=== PATIENT | female | born 1995 | race Hispanic/Latino ===

== ENCOUNTER 2017-01-05 09:51 | Inpatient (IN) | payer OTHER ==
[~2017-01-05] VITALS: Ht 162.6 cm; Wt 76.7 kg
[2017-01-05 10:21] LABS: MEAN CORPUSCULAR HGB CONC 34.6 g/dl (32.0-36.5); MEAN CORPUSCULAR VOLUME 92.7 fl (80.0-96.0); RED CELL DISTRIBUTION WIDTH 12.1 % (11.5-14.5); WHITE BLOOD COUNT 7.1 K/mm3 (4.0-10.0)
[2017-01-05 10:35] LABS: CONTROL LINE HCG INT CTR LINE PRESENT
[2017-01-05 10:38] LABS: METHADONE URINE NEGATIVE (NEGATIVE)
[2017-01-05 10:49] LABS: ALBUMIN 3.8 GM/DL (3.2-5.2); ALBUMIN/GLOBULIN RATIO 1.23 (1.00-1.93); ALKALINE PHOSPHATASE 79 U/L (45-117); ALT/SGPT 17 U/L (12-78); ANION GAP 9 MEQ/L (8-16); AST/SGOT 11 U/L (15-37); BILIRUBIN,DIRECT 0.1 MG/DL (0.0-0.2); BILIRUBIN,TOTAL 0.4 MG/DL (0.2-1.0); BLOOD UREA NITROGEN 8 MG/DL (7-18); CALCIUM LEVEL 8.5 MG/DL (8.5-10.1); CARBON DIOXIDE LEVEL 29 MEQ/L (21-32); CHLORIDE LEVEL 103 MEQ/L (98-107); CREATININE FOR GFR 0.69 MG/DL (0.55-1.02); GLOMERULAR FILTRATION RATE > 60.0 (>60); GLUCOSE, FASTING 105 MG/DL (70-105); POTASSIUM SERUM 3.8 MEQ/L (3.5-5.1); SODIUM LEVEL 141 MEQ/L (136-145); TOTAL PROTEIN 6.9 GM/DL (6.4-8.2)
[2017-01-05] MEDS ORDERED: ACETAMINOPHEN TAB 650MG DOSE (2X325MG) PO PRN ×2 (12:15→13:00)
[2017-01-05] MEDS ORDERED: traZODone 50 MG TAB PO PRN ×2 (12:15→13:00)
[2017-01-05] MEDS ORDERED: MAALOX 30 ML SUSP *UDC PO PRN ×2 (12:15→13:00)
[2017-01-05] MEDS ORDERED: MOM 30ML SUSPENSION UDC PO PRN ×2 (12:15→13:00)
[2017-01-05 13:08] VITALS: BP 131/86
[2017-01-05] MEDS: OLANZapine 5 MG TAB PO SCH ×2 (13:57→21:37)
[2017-01-05] MEDS: SERTRALINE HCL 50 MG TAB PO SCH (13:57)
[2017-01-05 18:00] VITALS: BP 131/76
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
[2017-01-06 06:35] VITALS: BP 124/84
[2017-01-06] MEDS: SERTRALINE HCL 50 MG TAB PO SCH (08:41)
[2017-01-06] MEDS: OLANZapine 5 MG TAB PO SCH (08:41)
[2017-01-06 18:14] VITALS: BP 120/67
[2017-01-06] MEDS: QUEtiapine FUMARATE 50 MG TAB PO SCH (22:40)
[2017-01-07 06:04] VITALS: BP 123/59
[2017-01-07] MEDS: SERTRALINE HCL 50 MG TAB PO SCH (08:06)
[2017-01-07] MEDS: QUEtiapine FUMARATE 50 MG TAB PO SCH ×2 (08:06→21:12)
[2017-01-07 18:21] VITALS: BP 114/76
[2017-01-08 06:43] VITALS: BP 134/74
[2017-01-08] MEDS: QUEtiapine FUMARATE 50 MG TAB PO SCH ×2 (08:06→21:50)
[2017-01-08] MEDS: SERTRALINE HCL 50 MG TAB PO SCH (08:07)
--- NOTE | 2017-01-08 13:01 | HPE ---
DATE OF ADMISSION: 01/05/2017 HISTORY OF PRESENT ILLNESS: Please refer to psychiatric history and evaluation for further details on this admission. This examination and history is intended for medical issues, which may need treatment, followup or consult on this 21-year-old female. ALLERGIES: No known allergies. PRIMARY CARE PROVIDER: [facility]. SOCIAL HISTORY: She is . 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 Ethyl alcohol (EtOH) weekends. Smokes none. Recreational drug use none. PAST MEDICAL HISTORY: Negative. PAST SURGICAL HISTORY: Negative. HOME MEDICATIONS: None. FAMILY HISTORY: Noncontributory. LABORATORY DATA: CBC was normal. CMP was normal. Toxicology screen was negative. REVIEW OF SYSTEMS: 10-systems review was done and was unremarkable. OBJECTIVE: VITAL SIGNS: Height 64 inches, weight 77.6 kg, body mass index (BMI) 29.4, blood pressure 123/60, pulse 70, respirations 16, temperature 97.9. GENERAL: The patient is alert and oriented times three. HEENT: Pupils equal and react to light. Extraocular movement intact. Sclerae clear. Conjunctivae normal. No facial asymmetry. Pharynx, tongue, gums pink and moist. Tongue is midline. NECK: Supple without lymphadenopathy. No thyromegaly. No goiter. Carotids 2+ without bruits. CHEST: Clear to auscultation without wheeze or retraction. HEART: Regular. ABDOMEN: Benign. Bowel sounds are positive. GENITOURINARY/RECTAL: Not done. EXTREMITIES: Equal strength, full range of motion. No cyanosis, clubbing or edema. Peripheral pulses equal and palpable bilaterally. SKIN: Warm and dry. Has old healed superficial lacerations in her left forearm. IMPRESSION AND PLAN: Psychiatric plan per psychiatry. No acute medical issues.
[2017-01-08 18:00] VITALS: BP 117/68
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
--- NOTE | 2017-01-08 21:24 | MHIPN ---
DATE: 01/07/2017 21-year-old female with history of: 1. Bipolar disorder. 2. Borderline personality disorder. SUBJECTIVE: The patient reports she "feels great, I slept a lot". The patient denies suicidal ideation. Says she has not been able to speak to her , although she knows that his back home, she says she knows he has called, but maybe nobody has been able to answer him on the phone at the inpatient mental health unit. She reports that she was warned, but she watched TV last night and denies urges to cut herself. She says that she has a plan whenever she feels upset or lonely to call for help, take her medications regularly and go to counseling in every week. OBJECTIVE: The patient is alert and oriented times three, cooperative with interview, in brighter mood and affect. The patient is not psychotic. She is not homicidal or suicidal. Her judgment and insight have improved, her impulse control has been good. ASSESSMENT: The patient is in a brighter mood. She seems to be less upset, however, it is interesting that she wanted her to come back home and now that he is back home, she seems not interested in him or in him coming to visit her. MANAGEMENT PLAN: Will continue on the same medications and will encourage her to attend groups. Will followup.
[2017-01-09 06:00] VITALS: BP 157/82
[2017-01-09] MEDS: hydrOXYzine 50 MG TAB PO PRN ×2 (06:25→14:36)
[2017-01-09] MEDS: QUEtiapine FUMARATE 50 MG TAB PO SCH ×2 (08:04→22:17)
[2017-01-09] MEDS: SERTRALINE HCL 50 MG TAB PO SCH (08:04)
--- NOTE | 2017-01-09 16:51 | ECGEPIP ---
Stationary ECG Study [facility] Test Date: 2017-01-09 Pat Name: TIFFANY HOLM Department: Room: [place] [address] Gender: F Industrial Rehabilitation Consultant: JIMMIE : 1995 Requested By: Karen Roman Order Number: [id number] Reading MD: Heath Lopez Measurements Intervals Romeo Rate: 85 P: 49 IN: 135 QRS: 43 QRSD: 89 T: 26 QT: 373 QTc: 445 Interpretive Statements SINUS RHYTHM Normal Electronically Signed On 01-09-2017 16:51:06 EDT by Heath Lopez
[2017-01-09 18:00] VITALS: BP 135/72
--- NOTE | 2017-01-09 18:12 | MHIPNPDOC ---
[facility] Progress Note Progress Note DATE OF SERVICE: 01/09/17 HISTORY: Patient is a 21-year-old female, who presented to ED after calling [facility] on [place] and reported experiencing suicidal ideation with plan to "get drunk and smash car into a tree." Patient reported +ETOH daily, notable history of suicide attempts, many unreported. 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 Patient reported marital issues, she is not working and noted at intake that being home alone is a stressor and trigger for depression for her. Patient notes she also has a history of cutting, notes she last cut 1 day prior to admission, usually cuts to thighs. At time of admission patient indicated she stopped taking her psychotropic medications in September wanting to try to cope without medications, noted at time of admission that she was wanting to restart psychotropic meds. Waterworks Chief Engineer met with patient today to assess treatment progress on the inpatient unit. Patient reported improvement to symptoms of anxiety and depression, denied suicidal and homicidal ideation noting she last experienced prior to admission, denied homicidal ideation, denied auditory or visual hallucinations, and denied urge to engage in self-injurious behavior. Patient reiterates today that in the past she has experienced "hearing people whispering," but notes she believes these were not auditory hallucinations. Patient today denies ever being diagnosed with "multiple personalities," confirms she does have a history of being diagnosed with anxiety, depression, and bipolar disorder. Patient indicates current medications are working well, she denies medication side effects, and states now she feels she is prepared for discharge, he comes noticeably irritable when informed the discharge would not be occurring today. Patient continues to describe sleep as "good," denies challenges with concentration and focus, indicates appetite is stable, and reports improvement in energy level. Patient speaks openly today about desire to discharge to home with , indicates has been will be staying home with her "for a while," and does not feel will be returning to [place] [facility]. Patient denies experiencing marital strain noting, "there were a few talks about but things are fine now." Patient indicates her family resides in [facility] and notes she has daily contact with her father, feels he is a strong and positive support. Patient denies symptoms of physical pain and presents with no signs of acute distress at time of interaction. Patient states she has a history of being treated with Risperdal and Celexa, and Seroquel. Patient indicates all of the aforementioned medications were effective in the past, add Seroquel had lowest side effects for addressing bipolar symptoms. VITALS: See below NEW TEST RESULTS: No new results MEDICAL/SURGICAL HISTORY: Patient denies chronic medical conditions, further denies history of seizure or head injury. 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, makes good eye contact, appears mildly disheveled, is dressed in hospital clothing, ambulates with steady gait, appears stated age but is somewhat immature in interactional style Speech: Of normal rate, rhythm, volume, spontaneous, coherent Thought processes: Linear, logical, rational Thought content: Logical, rational, no tangentiality or paranoia noted, perseverative to discharge Abstract reasoning and computation: Fair Description of associations: Intact Description of abnormal or psychotic thoughts: Patient denies suicidal and homicidal ideation, denies auditory and visual hallucinations, does not appear to be responding to internal stimuli, does not endorse bizarre paranoid ideations, and denies preoccupation with violence or obsessions Judgment: Poor. Insight: Poor. Orientation: A and O x 3. Recent and remote memory: Fair. Attention span and concentration: Limited, easily distracted Fund of knowledge: Appears adequate Mood: "I'm fine now that I'm back on my medications and my 's home so I feel I should be discharged today." No mood lability noted except when informed she would not be discharged today, appears impulsive Affect: Constricted, brightens at times, congruent with mood DIAGNOSES: Bipolar disorder, rule out borderline personality disorder, rule out substance-induced mood disorder, rule out alcohol use disorder ASSESSMENT: Patient appears to be adjusting to unit, has been visible, engaging with staff and peers, is participating in unit activities, is cooperative with staff, and has presented with no behavior management challenges. Patient informs promotion writer today that now that she is back on her medication she feels prepared for discharge, is superficially compliant and continues to minimize behavior and events which led to current hospitalization, notes that now that her has returned from [place] she feels she should be discharged. Patient reportedly abruptly discontinued her medications in September, states current medication regimen is working well and denies medication side effects. Importance of medication and treatment compliance was reviewed with patient who verbalized understanding. Patient indicates current medication is working well, denies medication side effects, has not been using trazodone for sleep but is aware medication is available to her if needed. Patient has been utilizing PRN hydroxyzine to address intermittent symptoms of anxiety with good effect reported. Patient denies current suicidal or homicidal ideation and verbalizes awareness of how to access supportive services on the unit if needed. Will continue to monitor patient's response to medications and for medication side effects, and will evaluate patient's safety, resolution of suicidal ideation, and discharge readiness. Patient states when prepared for discharge she wants to discharge to home with , states that her returns to [place] or is deployed she will go stay with a friend, who is also reportedly the of her husbands first sergeant. Patient reiterates today that she struggles with feelings of isolation and abandonment, also continues to appear impulsive and irritable. Patient has history of multiple suicide attempts in addition to self-injurious behavior with last episode occurring prior to hospitalization. clearance coordinator is attempting to access background treatment information and will be communicating with family to ensure that a safe discharge plan is put in place. Patient indicates she wants to follow-up with outpatient behavioral health services for psychotherapy and medication management. clearance coordinator will need to ensure that [place] is currently providing behavioral health services to active duty dependents. If [place] is not currently providing behavioral health services to active duty dependence, then patient will need to be referred to outpatient psychotherapy and medication management through community resources. MANAGEMENT PLAN: Continue Seroquel 150 mg po BID, Zoloft 50 mg po q am, trazodone 50 mg po hs PRN insomnia, hydroxyzine 50 mg po q 6 hours PRN anxiety/ agitation Maintain safety precautions Patient to attend groups and participate in unit programming to develop coping strategies Engage patient in discharge planning process and arrange meeting with support system to ensure safe discharge planning when appropriate Patient to follow up with PCM upon discharge TIME SPENT: 35 minutes Vital Signs Vital Signs Date Time Temp Pulse Resp B/P (MAP) Pulse Ox O2 Delivery O2 Flow Rate FiO2 01/09/17 06:00 98.8 72 18 157/82 (107) 100 Room Air Current Medications Current Medications Acetaminophen (Tylenol Tab) 650 mg Q6HP PRN PO HEADACHE or DISCOMFORT; Start at 12:15; Stop 02/04/17 at 12:14 Acetaminophen (Tylenol Tab) 650 mg Q6HP PRN PO HEADACHE or DISCOMFORT; Start at 13:00; Stop 02/04/17 at 12:59; Status UNV Al Hydrox/Mg Hydrox/Simethicone (Mylanta) 30 ml Q4HP PRN PO HEARTBURN/ INDIGESTION; Start 01/05/17 at 12:15; Stop 02/04/17 at 12:14 Al Hydrox/Mg Hydrox/Simethicone (Mylanta) 30 ml Q4HP PRN PO HEARTBURN/ INDIGESTION; Start 01/05/17 at 13:00; Stop 02/04/17 at 12:59; Status UNV Home Med (Med Rec Complete!) ASDIRECTED XX ; Start 01/05/17 at 11:45; Stop at 11:45; Status DC Hydroxyzine HCl (Atarax) 50 mg Q6HP PRN PO ANXIETY/AGITATION Last administered on 01/09/17 14:36; Start 01/05/17 at 13:00; Stop 02/04/17 at 12:59 Magnesium Hydroxide (Milk Of Magnesia) 30 ml DAILYPRN PRN PO CONSTIPATION; Start 01/05/17 at 12:15; Stop 02/04/17 at 12:14 Magnesium Hydroxide (Milk Of Magnesia) 30 ml DAILYPRN PRN PO CONSTIPATION; Start 01/05/17 at 13:00; Stop 02/04/17 at 12:59; Status UNV Olanzapine (ZyPREXA) 5 mg BID PO Last administered on 01/06/17 08:41; Start at 09:00; Stop 01/06/17 at 10:07; Status DC Quetiapine Fumarate (SEROquel) 150 mg BID PO Last administered on 01/09/17 08: 04; Start 01/06/17 at 21:00; Stop 02/05/17 at 20:59 Sertraline HCl (Zoloft) 50 mg DAILY PO Last administered on 01/09/17 08:04; Start 01/05/17 at 09:00; Stop 02/04/17 at 08:59 Trazodone HCl (Desyrel) 50 mg QHSP PRN PO INSOMNIA; Start 01/05/17 at 12:15; Stop 02/04/17 at 12:14 Trazodone HCl (Desyrel) 50 mg QHSP PRN PO INSOMNIA; Start 01/05/17 at 13:00; Stop 02/04/17 at 12:59; Status UNV Allergies Coded Allergies: No Known Allergies (Unverified , 01/05/17) Karen Roman Jan 09, 2017 18:12
[2017-01-10 07:05] VITALS: BP 137/72
[2017-01-10] MEDS: SERTRALINE HCL 50 MG TAB PO SCH (08:07)
[2017-01-10] MEDS: QUEtiapine FUMARATE 50 MG TAB PO SCH ×2 (08:07→21:53)
[2017-01-10 08:30] VITALS: BP 137/72
--- NOTE | 2017-01-10 09:24 | MHIPNPDOC ---
[facility] Progress Note Progress Note DATE OF SERVICE: 01/10/17 HISTORY: Patient is a 21-year-old female, who presented to ED [facility] [place] and reported experiencing suicidal ideation with plan to "get drunk and smash car into a tree." Patient reported +ETOH daily, notable history of suicide attempts, many unreported. 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 Patient reported marital issues, she is not working and noted at intake that being home alone is a stressor and trigger for depression for her. Patient notes she also has a history of cutting, notes she last cut 1 day prior to admission, usually cuts to thighs. At time of admission patient indicated she stopped taking her psychotropic medications in September wanting to try to cope without medications, noted at time of admission that she was wanting to restart psychotropic meds. Knockout Machine Operator met with patient today to assess treatment progress on the inpatient unit. Patient reports improvement to symptoms of anxiety and depression, denied suicidal and homicidal ideation noting she last experienced prior to admission, denied homicidal ideation, denied auditory or visual hallucinations, and denied urge to engage in self-injurious behavior. Patient reiterates today that in the past she has experienced "hearing people whispering," but notes she believes these were not auditory hallucinations. Patient states current medications continue to work well, she denies medication side effects, states she feels she is prepared for discharge. Patient exhibits no irritability, agitation, impulsivity, or mood lability today, and is able to engage in conversation pertaining to safety planning and measures she will utilize to keep self safe and emotionally comfortable if/when her is sent back to [place] and/ or deployed. Patient verbalizes understanding of marital strain, indicates she and have been "talking on and off about divorce for a long time," indicates she and spouse remain good friends and states that if she and spouse do separate she will return to [place] to live with family. Patient maintains daily contact with family, indicates she has friends in the [place] area, indicates she has been adequate support system. Patient states she is sleeping well, appetite is stable, denies challenges with energy level and concentration and focus. Patient is able to verbalize the importance of medication and outpatient treatment compliance, states she is motivated to follow through on treatment to maintain psychiatric stability. Patient denies symptoms of physical pain and presents with no signs of acute distress at time of interaction. Patient states she has a history of being treated with Risperdal and Celexa, and Seroquel. Patient indicates all of the aforementioned medications were effective in the past, add Seroquel had lowest side effects for addressing bipolar symptoms. VITALS: See below NEW TEST RESULTS: No new results MEDICAL/SURGICAL HISTORY: Patient denies chronic medical conditions, further denies history of seizure or head injury. Labs on admission indicated low AST UDS negative HCG negative. Patient has been educated on the risks to unborn child should she become while taking psychotropic medications, has been strongly encouraged to utilize control while taking psychotropic medications. 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 contact, exhibits adequate personal hygiene, is dressed in hospital clothing, ambulates with steady gait, appears stated age but is somewhat immature in interactional style Speech: Normal rate, rhythm, volume, spontaneous, coherent Thought processes: Linear, logical, rational Thought content: Logical, rational, no tangentiality or paranoia noted, perseverative to discharge Abstract reasoning and computation: Adequate Description of associations: Intact Description of abnormal or psychotic thoughts: Patient denies suicidal and homicidal ideation, denies auditory and visual hallucinations, does not appear to be responding to internal stimuli, does not endorse bizarre paranoid ideations, and denies preoccupation with violence or obsessions Judgment: Fair, has improved during treatment. Insight: Fair, has improved during treatment. Orientation: A and O x 3. Recent and remote memory: Intact Attention span and concentration: Adequate Fund of knowledge: Adequate Mood: "I feel good, better now that I'm back on my medications and I have no intentions of stopping them." Patient denies symptoms of anxiety and depression , no mood lability noted Affect: Mild constriction, brightens frequently and appropriately, congruent with mood DIAGNOSES: Bipolar disorder, rule out borderline personality disorder, rule out substance-induced mood disorder, rule out alcohol use disorder ASSESSMENT: Patient appears to be adjusting to unit, has been visible, engaging with staff and peers, is participating in unit activities, is cooperative with staff, and has presented with no behavior management challenges. Patient informs underwriter mortgage loan today that she feels prepared for discharge now that she has stabilized on her medications, indicates current medication regimen is working well and she denies medication side effects. Patient has not needed to utilize trazodone for sleep or hydroxyzine today for PRN treatment of anxiety. The importance of medication compliance has been reviewed with patient who verbalizes understanding. Patient has also been educated on the risks to on more child should she become while taking psychotropic medications and patient has been strongly encouraged to utilize control while taking medications. Patient engages more genuinely today, is no longer minimizing behavior and events which led to current hospitalization, is able to engage in safety planning process and verbalizes concrete strategies for mitigating symptoms of anxiety, depression, suicidal ideation, abandonment and loneliness should they reemerge. Patient denies current suicidal or homicidal ideation and verbalizes awareness of how to access supportive services on the unit if needed. Will continue to monitor patient's response to medications and for medication side effects, and will evaluate patient's safety and discharge readiness. Patient indicates today she wants to discharge to home with , is aware [facility] is no longer accepting dependence for behavioral health treatment, is agreeable to following up with community resource for psychotherapy and medication management, declined referral for case management. charge coordinator has communicated with who has indicated he has no concerns related to patient's discharge, states he and patient will continue to live together, and patient may discharge to family home. Family meeting has been scheduled for tomorrow and patient is tentatively scheduled for discharge after family meeting. MANAGEMENT PLAN: Continue Seroquel 150 mg po BID, Zoloft 50 mg po q am, and hydroxyzine 50 mg po q 6 hours PRN anxiety/agitation Maintain safety precautions Patient to attend groups and participate in unit programming to develop coping strategies Engage patient in discharge planning process and arrange meeting with support system to ensure safe discharge planning when appropriate Patient to follow up with PCM upon discharge TIME SPENT: 35 minutes Vital Signs Vital Signs Date Time Temp Pulse Resp B/P (MAP) Pulse Ox O2 Delivery O2 Flow Rate FiO2 01/10/17 07:05 99.3 91 16 137/72 (93) 01/09/17 06:00 100 Room Air Current Medications Current Medications Acetaminophen (Tylenol Tab) 650 mg Q6HP PRN PO HEADACHE or DISCOMFORT; Start at 12:15; Stop 02/04/17 at 12:14 Acetaminophen (Tylenol Tab) 650 mg Q6HP PRN PO HEADACHE or DISCOMFORT; Start at 13:00; Stop 02/04/17 at 12:59; Status UNV Al Hydrox/Mg Hydrox/Simethicone (Mylanta) 30 ml Q4HP PRN PO HEARTBURN/ INDIGESTION; Start 01/05/17 at 12:15; Stop 02/04/17 at 12:14 Al Hydrox/Mg Hydrox/Simethicone (Mylanta) 30 ml Q4HP PRN PO HEARTBURN/ INDIGESTION; Start 01/05/17 at 13:00; Stop 02/04/17 at 12:59; Status UNV Home Med (Med Rec Complete!) ASDIRECTED XX ; Start 01/05/17 at 11:45; Stop at 11:45; Status DC Hydroxyzine HCl (Atarax) 50 mg Q6HP PRN PO ANXIETY/AGITATION Last administered on 01/09/17 14:36; Start 01/05/17 at 13:00; Stop 02/04/17 at 12:59 Magnesium Hydroxide (Milk Of Magnesia) 30 ml DAILYPRN PRN PO CONSTIPATION; Start 01/05/17 at 12:15; Stop 02/04/17 at 12:14 Magnesium Hydroxide (Milk Of Magnesia) 30 ml DAILYPRN PRN PO CONSTIPATION; Start 01/05/17 at 13:00; Stop 02/04/17 at 12:59; Status UNV Olanzapine (ZyPREXA) 5 mg BID PO Last administered on 01/06/17 08:41; Start at 09:00; Stop 01/06/17 at 10:07; Status DC Quetiapine Fumarate (SEROquel) 150 mg BID PO Last administered on 01/10/17 08: 07; Start 01/06/17 at 21:00; Stop 02/05/17 at 20:59 Sertraline HCl (Zoloft) 50 mg DAILY PO Last administered on 01/10/17 08:07; Start 01/05/17 at 09:00; Stop 02/04/17 at 08:59 Trazodone HCl (Desyrel) 50 mg QHSP PRN PO INSOMNIA; Start 01/05/17 at 12:15; Stop 02/04/17 at 12:14 Trazodone HCl (Desyrel) 50 mg QHSP PRN PO INSOMNIA; Start 01/05/17 at 13:00; Stop 02/04/17 at 12:59; Status UNV Allergies Coded Allergies: No Known Allergies (Unverified , 01/05/17) Karen Roman Jan 10, 2017 09:24
[2017-01-10 18:00] VITALS: BP 132/91
[2017-01-11 06:21] VITALS: BP 132/72
[2017-01-11] MEDS: QUEtiapine FUMARATE 50 MG TAB PO SCH (08:14)
[2017-01-11] MEDS: SERTRALINE HCL 50 MG TAB PO SCH (08:14)
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
[2017-01-11] MEDS ORDERED: SERT50TA PO (11:15)
[2017-01-11] MEDS ORDERED: QUET5TAB PO (11:15)
[2017-01-11] MEDS ORDERED: HYDRO50TAB PO (11:15)
== END 2017-01-11 12:20 | disposition home or self-care (01) | DRG 885 ==
LOC: M ED 09:51 → M ED INP 12:06 → M PSY 13:00
PROVIDERS: ADMIT Psychiatry & Neurology Psychiatry; ATTEND Psychiatry & Neurology Psychiatry
DX: F31.9 Bipolar disorder, unspecified (principal); F10.14 Alcohol abuse with alcohol-induced mood disorder; F60.3 Borderline personality disorder; Z62.811 Personal history of psychological abuse in childhood; Z81.1 Family history of alcohol abuse and dependence; Z91.5 Personal history of self-harm; Z91.14 Patient's other noncompliance with medication regimen

== ENCOUNTER 2018-08-20 18:11 | Observation (INO) | payer OTHER ==
[~2018-08-20] VITALS: Ht 162.6 cm; Wt 79.6 kg
[~2018-08-20 18:11] MED LIST: HYDRO50TAB PO; QUET5TAB PO; SERT50TA PO
[2018-08-20] MEDS ORDERED: SERT-138 (18:18)
[2018-08-20 19:05] LABS: BASO % 0.3 % (0.0-1.0); HEMOGLOBIN 13.8 g/dl (12.0-15.5); LYMPH # 1.5 10^3/uL (1.5-6.5); LYMPH % 12.3 % (24.0-44.0); MEAN CORPUSCULAR HEMOGLOBIN 30.7 pg (27.0-33.0); MEAN CORPUSCULAR HGB CONC 33.7 g/dl (32.0-36.5); MEAN CORPUSCULAR VOLUME 91.1 fl (80.0-96.0); MONO # 0.6 10^3/uL (0.0-0.8); MONO % 5.3 % (0.0-5.0); NEUTROPHILS # 9.6 10^3/uL (1.8-7.7); NEUTROPHILS % 81.6 % (36.0-66.0); PLATELET COUNT, AUTOMATED 284 10^3/uL (150-450); WHITE BLOOD COUNT 11.8 10^3/uL (4.0-10.0)
[2018-08-20] MEDS ORDERED: NS 1,000 ML IV ONE (19:30)
[2018-08-20 19:37] LABS: ACETAMINOPHEN LEVEL < 2.0 UG/ML (10.0-30.0); ALBUMIN 4.3 GM/DL (3.2-5.2); ALT/SGPT 34 U/L (12-78); BILIRUBIN,DIRECT 0.1 MG/DL (0.0-0.2); BILIRUBIN,TOTAL 0.5 MG/DL (0.2-1.0); BLOOD UREA NITROGEN 6 MG/DL (7-18); CALCIUM LEVEL 8.8 MG/DL (8.5-10.1); CARBON DIOXIDE LEVEL 28 MEQ/L (21-32); CHLORIDE LEVEL 108 MEQ/L (98-107); CPK CREATINE PHOSPHOKINASE 177 U/L (26-192); CREATININE FOR GFR 0.65 MG/DL (0.55-1.30); ETHYL ALCOHOL (ETHANOL) 0.003 % (0.000-0.010); GLOMERULAR FILTRATION RATE > 60.0 (>60); GLUCOSE, FASTING 91 MG/DL (70-100); POTASSIUM SERUM 4.1 MEQ/L (3.5-5.1); SALICYLATE LEVEL < 1.7 MG/DL (5.0-30.0); SODIUM LEVEL 142 MEQ/L (136-145); TOTAL PROTEIN 7.6 GM/DL (6.4-8.2)
[2018-08-20 19:45] LABS: HCG, SERUM QUALITATIVE NEGATIVE (NEGATIVE)
[2018-08-20] MEDS ORDERED: ALEV220T26 PO (20:35)
[2018-08-20] MEDS: NS 1,000 ML IV SCH (20:41)
[2018-08-20] MEDS ORDERED: ONDANSETRON 4MG/2ML VIAL (J2405) IV PRN (20:45)
--- NOTE | 2018-08-20 21:20 | ECGEPIP ---
Stationary ECG Study [facility] - ED Test Date: 2018-08-20 Pat Name: TIFFANY HOLM Department: Room: - Gender: F 3D Technologist: que : 1995 Requested By: RICK Moreno Order Number: [id number] Reading MD: Kourtney Dowd Measurements Intervals [place] Rate: 84 P: 47 IN: 135 QRS: 39 QRSD: 84 T: 29 QT: 374 QTc: 444 Interpretive Statements SINUS RHYTHM SIMILAR 01/09/17 Electronically Signed On 08-20-2018 21:20:08 EDT by Kourtney Dowd
[2018-08-20 21:28] LABS: TROPONIN I < 0.02 NG/ML (< 0.10)
--- NOTE | 2018-08-20 22:30 | HPE ---
DATE OF ADMISSION: 08/20/2018 CHIEF COMPLAINT: Nausea, vomiting, palpitations, concern for Seroquel overdose. HISTORY OF THE PRESENT ILLNESS: The patient is a 23-year-old female with a significant past medical history of bipolar depression who presents in the emergency room with complaints of nausea, vomiting, abdominal pain, and palpitations that started today. She has had multiple episodes of nonbloody, nonbilious vomiting. Patient states she was drinking this morning. She states she does not drink on a normal basis; the last time she drank was approximately 2 weeks ago. She was having vodka, she fell asleep, woke up feeling nauseous, throwing up multiple times. The patient was previously on Seroquel and Zoloft for bipolar depression, and she states that approximately 10 to 12 of her Seroquel was missing. She presents to the emergency room mildly tachycardic with some abdominal discomfort, multiple episodes of nausea, vomiting. She denies any chest pain. She denies any shortness of breath. Denies fever, chills, abdominal pain. She denies urinary symptoms, constipation or diarrhea. Patient has had a suicide attempt many years ago; she cannot remember what mode she attempted suicide. She denies any current homicidal or suicidal ideations. PAST MEDICAL HISTORY: See history of the present illness. PAST SURGICAL HISTORY: None. ALLERGIES: No known drug allergies. SOCIAL HISTORY: She denies illicit drug use. States that she drinks alcohol maybe once every 2 weeks. FAMILY HISTORY: Cancers, diabetes, hypertension, psychiatric (psych) disorders. HOME MEDICATIONS: The patient currently takes no medications; states she is discontinued her Seroquel and Zoloft approximately a month ago as they were making her drowsy. REVIEW OF SYSTEMS: A 12-point review of systems was completed, all of which were negative except those listed in the history of the present illness. VITAL SIGNS ON ADMISSION: Temperature 98.4, pulse of 100, respirations of 17, blood pressure 137/102, saturating at 100% on room air. PHYSICAL EXAM: General: She is well nourished, in no apparent distress. Head is normocephalic, atraumatic Eyes: Extraocular movements are intact. Pupils equal, round, reactive to light. Neck is supple. No jugular venous pressure (JVP). Lungs: Clear to auscultation. No crackles, wheezes, rales, or rhonchi. Cardiovascular: Regular rate and rhythm. Normal S1, S2. No murmurs, gallops, or rubs. Abdomen: Soft, nontender, nondistended. Positive bowel sounds. No rebound, no guarding. Extremities: No pitting edema or calf tenderness. Skin: Intact. No rashes, lesions, or breakdown. Neurological: Alert and oriented times three. No focal deficit appreciated on the exam. LABS AND IMAGING: Done in the ER; white count of 11, hemoglobin and hematocrit of 13 over 41, platelet count of 284. Chemistry shows a potassium of 4.1, BUN and creatinine 6 over 0.65, TSH within normal limits. LFTs within normal limits. Urine toxicology: Salicylates, Tylenol, blood alcohol level all unremarkable. ASSESSMENT AND PLAN: Seroquel overdose. Place on the observation unit for 24-hour observation. Will perform every 4 hour neurologic checks, repeat EKG, keep on telemetry to assess for any signs of arrhythmia, repeat BMP for any electrolyte abnormalities. One-to-one, suicide precautions. The patient might need to be seen by psychiatry early in the morning. Will hold all psychotropic medications. However, the patient states that she has been off Seroquel and Zoloft for approximately a month and a half. Questionable history of alcohol abuse. Will perform Clinical [place] Withdrawal Assessment (CIWA) scores to avoid any withdrawal. Supportive: - Deep vein thrombosis (DVT) prophylaxis: Heparin subcu. - Gastrointestinal (GI) prophylaxis: Not indicated. - Diet: Regular, IV fluids.
[2018-08-21 01:18] LABS: AMPHETAMINES LEVEL URINE NEGATIVE (NEGATIVE); BARBITURATES URINE NEGATIVE (NEGATIVE); BENZODIAZEPINES URINE NEGATIVE (NEGATIVE); CANNABINOIDS URINE NEGATIVE (NEGATIVE); COCAINE METABOLITE URINE NEGATIVE (NEGATIVE); METHADONE URINE NEGATIVE (NEGATIVE); OPIATES URINE NEGATIVE (NEGATIVE); PHENCYCLIDINE URINE NEGATIVE (NEGATIVE)
[2018-08-21 07:11] LABS: HEMATOCRIT 37.9 % (36.0-47.0); HEMOGLOBIN 12.5 g/dl (12.0-15.5); MEAN CORPUSCULAR HEMOGLOBIN 30.6 pg (27.0-33.0); MEAN CORPUSCULAR VOLUME 92.7 fl (80.0-96.0); PLATELET COUNT, AUTOMATED 252 10^3/uL (150-450); RED BLOOD COUNT 4.09 10^6/uL (4.00-5.40); WHITE BLOOD COUNT 7.1 10^3/uL (4.0-10.0)
[2018-08-21 07:33] LABS: BLOOD UREA NITROGEN 9 MG/DL (7-18); CARBON DIOXIDE LEVEL 26 MEQ/L (21-32); CHLORIDE LEVEL 110 MEQ/L (98-107); CREATININE FOR GFR 0.53 MG/DL (0.55-1.30); GLOMERULAR FILTRATION RATE > 60.0 (>60); GLUCOSE, FASTING 92 MG/DL (70-100); POTASSIUM SERUM 3.6 MEQ/L (3.5-5.1); SODIUM LEVEL 141 MEQ/L (136-145)
[2018-08-21] MEDS: NS 1,000 ML IV SCH (07:48)
[2018-08-21 08:00] VITALS: BP_SYST 111; BP_SYST 144; BP_DIAS 56; BP_DIAS 63
[2018-08-21] MEDS ORDERED: ENOXAPARIN 40 MG/0.4 ML SYRINGE (J1650) SC SCH (09:00)
[2018-08-21] MEDS: POTASSIUM CHLORIDE 10 MEQ SR TABLET PO ONE ×2 (11:00→11:55)
[2018-08-21 12:00] VITALS: BP 110/71
[2018-08-21] MEDS ORDERED: POTASSIUM CHLORIDE 10% LIQ 20 MEQ/15 ML UDC PO ONE (12:00)
[2018-08-21] MEDS ORDERED: KCL 20MEQ in NS 1000ML 1,000 ML IV SCH (12:00)
[2018-08-21 12:13] LABS: CPK CREATINE PHOSPHOKINASE 105 U/L (26-192); MB/CK RELATIVE INDEX 1.05 (< OR =4); TROPONIN I < 0.02 NG/ML (< 0.10)
[2018-08-21 14:00] VITALS: BP 124/77
--- NOTE | 2018-08-21 17:41 | ECGEPIP ---
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
--- NOTE | 2018-08-21 20:06 | IPN ---
DATE: 08/21/2018 Patient admitted overnight. Currently denies any chest pain, pressure, or discomfort. Wanted to be discharged from the hospital. Denies any fevers or chills. VITAL SIGNS: Temperature 98.5, pulse 72, respirations 18, blood pressure 124/77, pulse oximetry 100% on room air. LABORATORY DATA: WBC 7.1, hemoglobin and hematocrit 12.5/37.9, platelets 252. Chemistry: Sodium 141, potassium 3.6, chloride 110, bicarbonate 26, BUN 9, creatinine 0.53. Cardiac enzymes negative times two. HCG negative. Urine toxicology negative. Urinalysis (UA) negative. GENERAL: Patient alert, comfortable in no acute distress. HEENT: Normocephalic, atraumatic. PULMONARY: Bilaterally clear. CARDIAC: Regular, S1, S2. ABDOMEN: Soft, nontender. EXTREMITIES: No edema, bilateral lower extremities. NEUROLOGIC: No focal deficit. ASSESSMENT AND PLAN: This is a 23-year-old female patient with underlying medical history of bipolar depression, history of suicidal ideation, presented to [facility] with alcohol intoxication and Seroquel overdose. 1. Seroquel overdose. Unknown if intentional or not. Patient does not know why she did it or if she did it at all. Patient reported she was intoxicated. Does report recent stress in life with moving to [place]. Every 4-hour neurologic checks, EKG, telemetry. Poison control was initially contacted by emergency room. Basic metabolic panel. Psychiatrist, Dr. Lay, was on consult. One-to-one sitter, suicide precautions. Holding all her medication. 2. Alcohol intoxication. Monitor for withdrawal. Patient has no history of withdrawal. Supportive care. 3. Depression and bipolar disorder. Psychiatry consulted. 4. Deep vein thrombosis (DVT) prophylaxis, heparin subcutaneous. DISPOSITION: Pending psychiatry evaluation.
[2018-08-21 20:15] VITALS: BP 112/78
[2018-08-21 22:00] VITALS: BP 108/63
--- NOTE | 2018-08-22 06:48 | DSES ---
DATE OF ADMISSION: 08/20/2018 DATE OF DISCHARGE: 08/21/2018 PRIMARY CARE PROVIDER: Dio Banuelos. PSYCHIATRIST: Dr. Lay. FINAL DIAGNOSES: Seroquel overdose. Poor insight. Depression. Possible suicide attempt. Alcohol intoxication and abuse. History of depression and bipolar disorder. History of suicide ideation. HISTORY OF PRESENT ILLNESS: This is a 23-year-old female patient with underlying medical history of bipolar disorder, depression, history of suicide ideation with admission to inpatient mental health who presented to emergency room with complaints of nausea, vomiting, abdominal pain and palpitations that started yesterday. Patient had multiple episodes of vomiting, non-bloody, non-bilious. Patient was drinking a lot in the morning of admission but does not drink on a normal basis. Last time patient drank prior to this is 2 weeks ago. Patient was taking Vodka. Woke up feeling nauseous, threw up multiple times. Was previously on Seroquel and Zoloft for bipolar and depression. Patient states that approximately 10-12 of her Seroquel was missing, presented to the emergency room mildly tachycardia with some abdominal discomfort, multiple episodes of nausea, vomiting. Denies any chest pain, pressure, discomfort. Denies any shortness of breath. Denies any fevers, chills, abdominal pain, constipation or diarrhea. Patient had suicide attempts in the past. Reported recently patient is stressed because of a move to [place]. HOSPITAL COURSE: Patient admitted to the hospital. Poison control was contacted by emergency room. Telemetry monitoring was observed. Neuro check was observed. Patient was monitored for withdrawal. One to one sitter was observed. Suicide precaution. Patient's symptom is currently asymptomatic. Tolerating oral. Subsequently consulted psychiatry and patient subsequently is transferred to inpatient mental health for further treatment and care given patient had lack of insight, poor judgment and previous attempts and recent stress, previous suicide ideation and recent stress. Patient is subsequently admitted to inpatient mental health. IV fluids were given. Patient was monitored on telemetry. Serial cardial enzyme was negative. Vital signs: Temperature 98.5, pulse 72, respirations 18, blood pressure 124/77, pulse oximetry 100% on room air. General: Patient alert, comfortable, in no acute distress. HEENT: Normocephalic, atraumatic. Pulmonary: Bilateral clear. Cardiac: Regular S1, S2. Abdomen: Soft, nontender. Positive bowel sounds. Extremities: No clubbing, cyanosis or edema. No focal deficit neurologically. LABORATORY: WBC 7.1, hemoglobin and hematocrit 12.5/37.9, platelets 252. Chemistry: Sodium 141, potassium 3.6, chloride 110, bicarbonate 26, BUN 9, creatinine 0.53. Cardiac enzymes negative times two. HEENT negative. HOME MEDICATION: None. DISCHARGE INSTRUCTIONS: Please followup with primary care provider 7 days after discharge. Please see followup with further recommendation as per inpatient mental health providers. Withdrawal precautions. Return to the hospital if symptoms worsen. Diet as tolerated.
== END 2018-08-21 22:31 | disposition other institution (70) ==
LOC: M ED 18:11 → M ED INP 20:41 → M MSPAV 08-21 14:18
PROVIDERS: ADMIT Internal Medicine; ATTEND Hospitalist
DX: T43.502A Poisoning by unspecified antipsychotics and neuroleptics, intentional self-harm, initial encounter (principal); F31.9 Bipolar disorder, unspecified; R45.851 Suicidal ideations; Z79.899 Other long term (current) drug therapy
CPT/HCPCS: 36415; 80048; 80076; 80307; 81001; 82550; 82553; 84443; 84484; 84703; 85025; 85027; 93005; 93041; 94760; 96360; 96361; 96372; 99285; G0480; J1650

== ENCOUNTER 2018-08-21 19:51 | Inpatient (IN) | payer OTHER ==
[~2018-08-21] VITALS: Ht 162.6 cm; Wt 79.1 kg
[~2018-08-21 19:51] MED LIST changes: +ALEV220T26 PO; +SERT-138
[2018-08-21] MEDS ORDERED: MAALOX 30 ML SUSP *UDC PO PRN (20:15)
[2018-08-21] MEDS ORDERED: QUEtiapine FUMARATE 25 MG TAB PO PRN (20:15)
[2018-08-21] MEDS ORDERED: MOM 30ML SUSPENSION UDC PO PRN (20:15)
[2018-08-21 23:18] VITALS: BP 146/98
[2018-08-22] MEDS: traZODone 50 MG TAB PO PRN ×2 (00:09→22:52)
[2018-08-22 06:37] VITALS: BP 119/74
[2018-08-22] MEDS: SERTRALINE HCL 50 MG TAB PO SCH (08:30)
--- NOTE | 2018-08-22 09:15 | HPEPDOC ---
[facility] Medical History & Physical Date of Admission Aug 21, 2018 History and Physical PCP: Dio tong ATTENDING: Dr. Jonathan Ramey HPI: 23yof admitted to [facility] 08/20/18-08/21/18 related to Seroquel OD and ETOH intoxication, trnasferred to [facility] 08/20/18 for unspecified depressive disorder. The pt is being medically examined today. Denies acute medical complaints today. Denies any fevers, chills, weakness, fatigue, RAMOS, CP, SOB, cough, palpitations, abdominal pain, N/V/D or changes in bowel or bladder habits. PMHx: anxiety depression PSHX: denies SOCHX: Resides in: [facility] Marital Status: Kids: none Employment: [employer] Tobacco use: denies ETOH: 1 x per week "few" drinks per pt. Illicit Drugs: Denies IV Drug Use: Denies Tattoos done unprofessionally: Denies FAMHX: Mother: Alive, unknown Father: Alive, HLD, HTN, anxiety depression bipolar disorder, schizophrenia Siblings: 3 brothers Alive, anxiety depression bipolar disorder, schizophrenia Children: none Unexpected deaths due to medical reasons: None. ROS: As noted in HPI, otherwise 11pt ROS of systems reviewed and remarkable only for LMP 08/09/18. PE: GEN: 23yoF, appears stated age. Well-nourished, well developed. No acute distress. Alert and oriented x 3. Pleasant, interactive. HEENT: Normocephalic, atraumatic. Pupils are equal, round, and reactive to light. Extraocular movements are intact. No nystagmus appreciated. Sclera are nonicteric. Conjunctiva without injection. Nose midline. Nasal turbinates without bogginess. EACs both patent BL. TMs both visualized and wei with good cone of light, no bulging or erythema. No facial asymmetry. Moist mucous membranes. Dentition fair. Pharynx pink and moist, no cobblestoning. Neck supple, trachea midline. No lymphadenopathy or thyromegaly appreciated. CHEST: Regular rate and rhythm, +S1, +S2 LUNGS: Clear to auscultation bilaterally. No wheezes, rales, or rhonchi. Breathing appears symmetric and easy. Patient is speaking in full sentences. No accessory muscle use. ABD: Round, soft, non-tender, non-distended. +Bowel sounds throughout. No rebound or guarding. No costovertebral angle tenderness. EXT: Pulses 2+ bilaterally dorsalis pedis and radial. No lower extremity edema appreciated. Reporting Left calf pain and TTP, no edema, erythema, cording noted. SKIN: [place], dry, warm. Capillary refill <2sec. No rashes. NEURO: Alert and oriented x 3. Cranial nerves III-XII are intact. No focal deficits appreciated. EKG: Normal sinus rhythm Low QRS voltages in the limb leads Nonspecific T-wave abnormalities No significant change since 08/20/2018 Electronically Signed On 08-21-2018 17:41:05 EDT by Kehinde Nunez A&P: 23yof admitted to [facility] for unspecified depressive disorder, 1. Psych. Plan per Psychiatry. EKG on file. 2. H/O Abdominal pain. Denies N/V/D currently. The pt is eating and drinking on the unit. Afebrile. VSS. Pt presented to emergency room with complaints of nausea, vomiting, abdominal pain. Patient had multiple episodes of vomiting, non-bloody, non-bilious. S/P IVF and Zofran as needed. UA unremarkable. CBC/CMP unremarkable. Monitor. 3. Chest pain. Denies currently. Reported on admission. Serial Troponin neg. EKG with no acute changes. Monitor. 4. Follow up with PCP on discharge. 5. Left calf pain. Check U/S LLE. 6. Staff member Renee YANG present throughout exam. Vital Signs Vital Signs Date Time Temp Pulse Resp B/P (MAP) Pulse Ox O2 Delivery O2 Flow Rate FiO2 08/22/18 06:37 98.4 56 16 119/74 (89) Laboratory Data Labs 24H Item Value Date Time White Blood Count 7.1 10^3/uL 08/21/18 0650 Red Blood Count 4.09 10^6/uL 08/21/18 0650 Hemoglobin 12.5 g/dl 08/21/18 0650 Hematocrit 37.9 % 08/21/18 0650 Mean Corpuscular Volume 92.7 fl 08/21/18 0650 Mean Corpuscular Hemoglobin 30.6 pg 08/21/18 0650 Mean Corpuscular Hemoglobin Concent 33.0 g/dl 08/21/18 0650 Red Cell Distribution Width 12.1 % 08/21/18 0650 Platelet Count 252 10^3/uL 08/21/18 0650 Sodium Level 141 MEQ/L 08/21/18 0650 Potassium Level 3.6 MEQ/L 08/21/18 0650 Chloride Level 110 MEQ/L H 08/21/18 0650 Carbon Dioxide Level 26 MEQ/L 08/21/18 0650 Anion Gap 5 MEQ/L L 08/21/18 0650 Blood Urea Nitrogen 9 MG/DL 08/21/18 0650 Creatinine 0.53 MG/DL L 08/21/18 0650 Glomerular Filtration Rate > 60.0 08/21/18 0650 Fasting Glucose 92 MG/DL 08/21/18 0650 Calcium Level 8.0 MG/DL L 08/21/18 0650 Total Creatine Kinase 105 U/L 08/21/18 1111 Creatine Kinase MB 1.0 NG/ML 08/21/18 1111 Creatine Kinase MB Relative Index 1.05 08/21/18 1111 Troponin I < 0.02 NG/ML 08/21/18 1111 Total Protein 7.6 GM/DL 08/20/18 1852 Albumin 4.3 GM/DL 08/20/18 1852 Albumin/Globulin Ratio 1.30 08/20/18 1852 Thyroid Stimulating Hormone (TSH) 0.460 uIU/ML 08/20/18 1852 Human Chorionic Gonadotropin, Qual NEGATIVE 08/20/18 1852 Salicylates Level < 1.7 MG/DL L 08/20/18 185 Urine Opiates Screen NEGATIVE 08/20/18 185 Urine Methadone Screen NEGATIVE 08/20/18 185 Acetaminophen Level < 2.0 UG/ML L 08/20/18 185 Urine Barbiturates Screen NEGATIVE 08/20/18 1852 Urine Phencyclidine Screen NEGATIVE 08/20/18 185 Urine Amphetamines Screen NEGATIVE 08/20/18 185 Urine Benzodiazepines Screen NEGATIVE 08/20/18 185 Urine Cocaine Metabolite Screen NEGATIVE 08/20/18 185 Urine Cannabinoids Screen NEGATIVE 08/20/18 185 Ethyl Alcohol Level 0.003 % 08/20/18 1852 Home Medications No Active Prescriptions or Reported Meds Allergies Coded Allergies: No Known Allergies (Unverified , 08/21/18) Diana Mosley Aug 22, 2018 09:15
--- NOTE | 2018-08-22 10:44 | REP ---
LEFT LOWER EXTREMITY DOPPLER VENOUS ULTRASOUND: 08/22/2018. Technique: The deep venous system of the left lower extremity is evaluated with wei scale imaging, compression ultrasound, color imaging and duplex Doppler interrogation. Examination from the groin through the popliteal fossa into the proximal calf. Findings: No prior study. There is full compressibility from the common femoral vein in the inguinal region through the popliteal vein. Color imaging confirms patency throughout the course of the deep venous system. There is respiratory variation and augmented flow at all levels. There is a small Hunter's cyst in the popliteal fossa, 2.5 x 1 x 0.6 cm. Impression: 1. No Doppler venous ultrasound evidence of DVT in the left lower extremity. 2. Small popliteal fossa cyst 2.1 x 1 x 0.6 cm. Electronically Signed by Oswaldo Faye MD 08/22/2018 10:35 A
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
[2018-08-22] MEDS ORDERED: PILL CRUSHER/CUTTER 1 EACH XX PRN (17:15)
[2018-08-22 18:00] VITALS: BP 141/82
[2018-08-23 06:19] VITALS: BP 138/71
[2018-08-23] MEDS: SERTRALINE HCL 50 MG TAB PO SCH (08:05)
[2018-08-23] MEDS ORDERED: QUET1TAB7 PO (11:19)
[2018-08-23] MEDS ORDERED: SERT50TA PO (11:19)
[2018-08-23] MEDS ORDERED: ARIP5TA PO (11:19)
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
== END 2018-08-23 13:00 | disposition home or self-care (01) | DRG 881 ==
LOC: M PSY 22:38
PROVIDERS: ADMIT Psychiatry & Neurology Psychiatry; ATTEND Psychiatry & Neurology Psychiatry
DX: F34.1 Dysthymic disorder (principal); F60.3 Borderline personality disorder; F43.21 Adjustment disorder with depressed mood; F10.10 Alcohol abuse, uncomplicated; Z63.0 Problems in relationship with spouse or partner; Z91.5 Personal history of self-harm